=== PATIENT | female | born 1980 | race Caucasian/White ===

== ENCOUNTER 2024-04-07 19:07 | Inpatient (IN) | payer MEDICAID ==
[~2024-04-07] VITALS: Ht 170.2 cm; Wt 59.0 kg
[2024-04-07] MEDS ORDERED: ONDANSETRON 4 MG/2 ML VIAL ONE (19:57)
[2024-04-07 20:03] LABS: BASOPHILS % (AUTO) 0.2 % (0.0-2.0); HEMOGLOBIN 12.8 g/dL (10.9-14.3); LYMPHOCYTES # (AUTO) 1.1 K/uL (0.8-4.8); LYMPHOCYTES % (AUTO) 9.3 % (20.5-51.5); MEAN CORPUSCULAR HEMOGLOBIN 30.7 uug (24.7-32.8); MEAN CORPUSCULAR HGB CONC 35 g/dL (32.3-35.6); MEAN CORPUSCULAR VOLUME 88.5 fL (75.5-95.3); MONOCYTES # (AUTO) 0.7 K/uL (0.1-1.30); MONOCYTES % (AUTO) 6.2 % (0.0-11.0); NEUTROPHILS # (AUTO) 10.2 K/uL (1.8-8.9); NEUTROPHILS % (AUTO) 84.3 % (38.5-71.5); PLATELET COUNT (AUTO) 373 K/uL (179-408); RED BLOOD CELL COUNT(AUTO) 4.18 MIL/uL (3.63-4.92); WHITE BLOOD COUNT (AUTO) 12.1 K/uL (3.8-11.8)
[2024-04-07] MEDS: IV NS 1000 ML 1,000 ML IV ONE (20:05)
[2024-04-07 20:06] LABS: DIFFERENTIAL COMMENT 1
[2024-04-07 20:18] LABS: ALBUMIN 3.1 g/dL (3.4-5.0); BILIRUBIN,TOTAL 0.9 mg/dL (0.2-1.0); CALCIUM 8.8 mg/dL (8.5-10.1); CREATININE 0.6 mg/dL (0.6-1.3); TOTAL PROTEIN, SERUM 6.6 g/dL (6.4-8.2)
[2024-04-07 20:28] LABS: POTASSIUM 2.7 mmol/L (3.5-5.1)
[2024-04-07] MEDS: ONDANSETRON 4 MG/2 ML VIAL IV ONE (20:39)
[2024-04-07] MEDS ORDERED: NEOMY/BACITRA/POLYMYXIN B OINT UD PACKET TP ONE (20:48)
[2024-04-07] MEDS: POTASSIUM CHLORIDE 50 ML IV SCH (22:00)
[2024-04-07] MEDS: NEOMY/BACITRA/POLYMYXIN B OINT UD PACKET TP ONE (22:00)
[2024-04-07] MEDS ORDERED: IV NORMAL SALINE 250 ML IV ONE ×2 (22:08→23:21)
[2024-04-07] MEDS ORDERED: SWABABLE VALVE TRANSFER SET EA MC ONE ×2 (22:08→23:21)
[2024-04-07] MEDS ORDERED: IOHEXOL 300MG/ML 100 ML INFUS..BTL ONE ×2 (22:08→23:21)
[2024-04-07] MEDS ORDERED: POTASSIUM CHLORIDE 200 ML ONE (22:49)
[2024-04-07] MEDS ORDERED: POTASSIUM CHLORIDE 20 MEQ TAB.PRT.SR ONE (22:49)
[2024-04-07] MEDS: POTASSIUM CHLORIDE 20 MEQ TAB.PRT.SR PO ONE (22:50)
[2024-04-07 22:54] LABS: *BLOOD, URINE 3+ (NEGATIVE); *CLARITY,URINE CLOUDY (CLEAR); *COLOR,URINE YELLOW (YELLOW); *KETONES,URINE 4+ (NEGATIVE); LEUKOCYTE ESTERASE ,URINE 1+ (NEGATIVE); NITRITE, URINE POSITIVE (NEGATIVE); UGLUCOSE NEGATIVE (NEGATIVE)
[2024-04-07] MEDS: METOCLOPRAMIDE HCL 10 MG/2 ML VIAL IV ONE (23:00)
[2024-04-07 23:03] LABS: *PROTEIN,URINE 3+ (NEGATIVE)
[2024-04-07 23:04] LABS: *BILIRUBIN,URIN 2+ (NEGATIVE)
[2024-04-07] MEDS ORDERED: METOCLOPRAMIDE HCL 10 MG/2 ML VIAL ONE (23:12)
[2024-04-08] MEDS: MAGNESIUM SULFATE/D5W 100 ML IV SCH
[2024-04-08 01:09] LABS: BACTERIA,URINE MODERATE /HPF (NONE SEEN); RBC,URINE 20-50 /HPF (0-3); SQUAMOUS EPITHELIAL CELL,UR FEW /HPF (NONE SEEN)
[2024-04-08 01:10] LABS: CALCIUM OXALATE CRYSTALS,UR FEW /HPF (NONE SEEN)
[2024-04-08] MEDS ORDERED: CEFTRIAXONE /D5W 50ML IVPB **ER PYXIS IV ONE ×3 (01:45→22:53)
[2024-04-08] MEDS ORDERED: MAGNESIUM SULFATE/D5W 100 ML ONE (01:45)
[2024-04-08] MEDS: CEFTRIAXONE 1 G in IV DEXTROSE 5% 50 ML IV ONE (01:50)
[2024-04-08] MEDS ORDERED: ONDANSETRON 4 MG/2 ML VIAL ONE (02:34)
[2024-04-08] MEDS: ONDANSETRON 4 MG/2 ML VIAL IV ONE (02:40)
[2024-04-08] MEDS ORDERED: MAGNESIUM HYDROXIDE 30 ML LIQUID UDC PO PRN (05:45)
[2024-04-08] MEDS ORDERED: REMEDY ESSENTIAL ZINC PASTE 113 GM TP PRN (05:45)
[2024-04-08] MEDS ORDERED: PROCHLORPERAZINE EDISYLATE 10 MG/2 ML VIAL ONE (05:59)
[2024-04-08] MEDS ORDERED: HYDROMORPHONE 1 MG/1 ML DISP.SYRIN ONE (06:00)
[2024-04-08] MEDS: PROCHLORPERAZINE EDISYLATE 10 MG/2 ML VIAL IM ONE (06:05)
[2024-04-08] MEDS: HYDROMORPHONE 1 MG/1 ML DISP.SYRIN IV ONE (06:05)
[2024-04-08 08:13] LABS: BASOPHILS % (AUTO) 0.3 % (0.0-2.0); EOSINOPHILS % (AUTO) 0.1 % (0.0-7.0); HEMATOCRIT 36.5 % (31.2-41.9); HEMOGLOBIN 12.7 g/dL (10.9-14.3); LYMPHOCYTES # (AUTO) 1.4 K/uL (0.8-4.8); LYMPHOCYTES % (AUTO) 13.5 % (20.5-51.5); MEAN CORPUSCULAR HEMOGLOBIN 31.6 uug (24.7-32.8); MEAN CORPUSCULAR HGB CONC 35 g/dL (32.3-35.6); MONOCYTES # (AUTO) 0.7 K/uL (0.1-1.30); MONOCYTES % (AUTO) 7.4 % (0.0-11.0); NEUTROPHILS % (AUTO) 78.7 % (38.5-71.5); PLATELET COUNT (AUTO) 296 K/uL (179-408); RED BLOOD CELL COUNT(AUTO) 4.01 MIL/uL (3.63-4.92); RED CELL DISTRIBUTION WIDTH 13.2 % (12.3-17.7); WHITE BLOOD COUNT (AUTO) 10.1 K/uL (3.8-11.8)
[2024-04-08 08:39] LABS: DIFFERENTIAL COMMENT 1
[2024-04-08 08:53] LABS: CALCIUM 7.8 mg/dL (8.5-10.1); CREATININE 0.6 mg/dL (0.6-1.3); MAGNESIUM 1.8 mg/dL (1.8-2.4); POTASSIUM 3.6 mmol/L (3.5-5.1)
[2024-04-08] MEDS ORDERED: ENOXAPARIN SODIUM 40 MG/0.4 ML DISP.SYRIN SQ ONE (09:44)
[2024-04-08] MEDS: ENOXAPARIN SODIUM 40 MG/0.4 ML DISP.SYRIN SQ SCH (09:52)
[2024-04-08] MEDS: IV LACTATED RINGERS SOLUTION 1,000 ML IV SCH (13:26)
[2024-04-08] MEDS: CEFTRIAXONE 1 G in IV DEXTROSE 5% 50 ML IV SCH (22:58)
[2024-04-09 04:52] VITALS: BP 105/56; TEMP 98
[2024-04-09] MEDS: ONDANSETRON 4 MG/2 ML VIAL IV PRN (04:58)
[2024-04-09] MEDS ORDERED: ONDANSETRON 4 MG/2 ML VIAL IV PRN (05:45)
[2024-04-09 08:00] LABS: BASOPHILS % (AUTO) 0.3 % (0.0-2.0); EOSINOPHILS % (AUTO) 0.1 % (0.0-7.0); HEMATOCRIT 35.9 % (31.2-41.9); HEMOGLOBIN 12.4 g/dL (10.9-14.3); LYMPHOCYTES % (AUTO) 15.2 % (20.5-51.5); MEAN CORPUSCULAR HEMOGLOBIN 30.7 uug (24.7-32.8); MEAN CORPUSCULAR HGB CONC 35 g/dL (32.3-35.6); MONOCYTES # (AUTO) 0.5 K/uL (0.1-1.30); MONOCYTES % (AUTO) 7.9 % (0.0-11.0); NEUTROPHILS % (AUTO) 76.5 % (38.5-71.5); PLATELET COUNT (AUTO) 282 K/uL (179-408); RED BLOOD CELL COUNT(AUTO) 4.03 MIL/uL (3.63-4.92); RED CELL DISTRIBUTION WIDTH 12.9 % (12.3-17.7); WHITE BLOOD COUNT (AUTO) 6.5 K/uL (3.8-11.8)
[2024-04-09 08:25] LABS: DIFFERENTIAL COMMENT 1
[2024-04-09 08:32] LABS: CARBON DIOXIDE 25 mmol/L (21-32); CHLORIDE 99 mmol/L (98-107); CHOLESTEROL 159 mg/dL (<200); CREATININE 0.5 mg/dL (0.6-1.3); GLUCOSE 103 mg/dL (74-106); HDL CHOLESTEROL 51 mg/dL (40-60); MAGNESIUM 1.6 mg/dL (1.8-2.4); PHOSPHOROUS 2.9 mg/dL (2.5-4.9); SODIUM SERUM 138 mmol/L (136-145); TRIGLYCERIDES 94 MG/DL (30-150); UREA NITROGEN, BLOOD 4 mg/dL (7-18)
[2024-04-09 08:44] LABS: POTASSIUM 2.6 mmol/L (3.5-5.1)
[2024-04-09] MEDS ORDERED: POTASSIUM CHLORIDE 20 MEQ TAB.PRT.SR PO ONE (10:45)
[2024-04-09] MEDS ORDERED: POTASSIUM CHLORIDE 50 ML IV SCH (10:45)
[2024-04-09] MEDS: MAGNESIUM SULFATE/D5W 100 ML IV SCH (11:29)
[2024-04-09] MEDS: PROCHLORPERAZINE EDISYLATE 10 MG/2 ML VIAL IV PRN (11:30)
[2024-04-09 11:58] VITALS: BP 128/72; TEMP 97; O2SAT 97
[2024-04-09] MEDS: POTASSIUM CHLORIDE 50 ML IV SCH (12:41)
[2024-04-09] MEDS: POTASSIUM CHLORIDE 20 MEQ TAB.PRT.SR PO SCH (12:41)
[2024-04-09 16:00] VITALS: BP 111/71; TEMP 98; O2SAT 97
[2024-04-09 17:03] LABS: THYROID STIMULATING HORMONE 1.051 mIU/mL (0.358-3.740)
[2024-04-09 17:15] LABS: CALCIUM 8.3 mg/dL (8.5-10.1); CARBON DIOXIDE 21 mmol/L (21-32); CHLORIDE 99 mmol/L (98-107); CREATININE 0.5 mg/dL (0.6-1.3); GLUCOSE 90 mg/dL (74-106); MAGNESIUM 1.8 mg/dL (1.8-2.4); PHOSPHOROUS 3.2 mg/dL (2.5-4.9); POTASSIUM 2.8 mmol/L (3.5-5.1); SODIUM SERUM 139 mmol/L (136-145); UREA NITROGEN, BLOOD 3 mg/dL (7-18)
[2024-04-09] MEDS: IV LACTATED RINGERS SOLUTION 1,000 ML IV PRN (18:08)
[2024-04-09 19:30] VITALS: BP 125/74; TEMP 98.4; O2SAT 100
[2024-04-10] MEDS: ONDANSETRON 4 MG/2 ML VIAL IV PRN (00:49)
[2024-04-10] MEDS: TEMAZEPAM 7.5 MG CAPSULE PO ONE (02:09)
[2024-04-10 06:30] VITALS: BP 125/63; TEMP 99.6; O2SAT 97
[2024-04-10 07:13] LABS: BASOPHILS % (AUTO) 0.2 % (0.0-2.0); HEMATOCRIT 35.6 % (31.2-41.9); HEMOGLOBIN 12.5 g/dL (10.9-14.3); LYMPHOCYTES # (AUTO) 1.1 K/uL (0.8-4.8); LYMPHOCYTES % (AUTO) 11.4 % (20.5-51.5); MEAN CORPUSCULAR HEMOGLOBIN 31.5 uug (24.7-32.8); MEAN CORPUSCULAR HGB CONC 35 g/dL (32.3-35.6); MEAN CORPUSCULAR VOLUME 89.6 fL (75.5-95.3); MONOCYTES # (AUTO) 0.7 K/uL (0.1-1.30); MONOCYTES % (AUTO) 7.6 % (0.0-11.0); NEUTROPHILS # (AUTO) 7.7 K/uL (1.8-8.9); NEUTROPHILS % (AUTO) 80.8 % (38.5-71.5); PLATELET COUNT (AUTO) 321 K/uL (179-408); RED BLOOD CELL COUNT(AUTO) 3.97 MIL/uL (3.63-4.92); RED CELL DISTRIBUTION WIDTH 12.9 % (12.3-17.7); WHITE BLOOD COUNT (AUTO) 9.6 K/uL (3.8-11.8)
[2024-04-10 07:20] LABS: DIFFERENTIAL COMMENT 1
[2024-04-10 07:25] LABS: CALCIUM 7.9 mg/dL (8.5-10.1); CARBON DIOXIDE 24 mmol/L (21-32); CHLORIDE 100 mmol/L (98-107); CREATININE 0.5 mg/dL (0.6-1.3); GLUCOSE 93 mg/dL (74-106); MAGNESIUM 1.9 mg/dL (1.8-2.4); PHOSPHOROUS 2.5 mg/dL (2.5-4.9); POTASSIUM 3.3 mmol/L (3.5-5.1); SODIUM SERUM 138 mmol/L (136-145); UREA NITROGEN, BLOOD 2 mg/dL (7-18)
[2024-04-10] MEDS: POTASSIUM CHLORIDE 50 ML IV SCH (08:22)
[2024-04-10] MEDS: MORPHINE SULFATE 2 MG/1 ML DISP.SYRIN IV PRN (08:23)
[2024-04-10 11:06] LABS: *ANTI-SCLERODERMA-70 AB <0.2 AI (0.0-0.9); *RNP ANTIBODIES <0.2 AI (0.0-0.9); *SJOGREN'S ANTI-SS-A <0.2 AI (0.0-0.9); *SJOGREN'S ANTI-SS-B <0.2 AI (0.0-0.9); *SMITH ANTIBODIES <0.2 AI (0.0-0.9); ANTI-DNA(DS) AB, QN <1 IU/mL (0-9); ANTI-NUCLEAR AB DIRECT Negative (Negative)
[2024-04-10 12:00] VITALS: BP 111/78; TEMP 98; O2SAT 97
[2024-04-10] MEDS: POTASSIUM CHLORIDE 20 MEQ POWDER PACKET PO ONE (12:57)
[2024-04-10] MEDS: DULOXETINE 20 MG CAPSULE.DR PO SCH (13:01)
[2024-04-10 16:00] VITALS: BP 125/74; TEMP 98.4; O2SAT 100
[2024-04-10] MEDS: SIMETHICONE 80 MG TAB.CHEW PO PRN (16:33)
[2024-04-10] MEDS: PANTOPRAZOLE SODIUM 40 MG VIAL IV SCH (16:34)
[2024-04-10 20:00] VITALS: BP 122/74; TEMP 99; O2SAT 95
[2024-04-10] MEDS: ACETAMINOPHEN 325 MG TABLET PO PRN (23:23)
[2024-04-11 04:46] VITALS: BP 118/72; TEMP 98.7; O2SAT 94
[2024-04-11 06:03] VITALS: BP 118/72; TEMP 98.7; O2SAT 94
[2024-04-11 06:05] VITALS: BP 118/72; TEMP 98.7; O2SAT 100
[2024-04-11 11:05] VITALS: BP 109/65; TEMP 97.7; O2SAT 97
[2024-04-11] MEDS ORDERED: PANT40TA2 PO (14:10)
[2024-04-11] MEDS ORDERED: HYDR-3972 PO (14:10)
[2024-04-11] MEDS ORDERED: ONDA4TAB11 PO (14:10)
[2024-04-11] MEDS ORDERED: SULF1TAB48 PO (14:18)
[2024-04-11 14:59] LABS: BASOPHILS % (AUTO) 0.1 % (0.0-2.0); HEMOGLOBIN 11.8 g/dL (10.9-14.3); LYMPHOCYTES # (AUTO) 1.1 K/uL (0.8-4.8); LYMPHOCYTES % (AUTO) 13.6 % (20.5-51.5); MEAN CORPUSCULAR HGB CONC 35 g/dL (32.3-35.6); MEAN CORPUSCULAR VOLUME 89.3 fL (75.5-95.3); MONOCYTES # (AUTO) 0.8 K/uL (0.1-1.30); MONOCYTES % (AUTO) 9.2 % (0.0-11.0); NEUTROPHILS # (AUTO) 6.4 K/uL (1.8-8.9); NEUTROPHILS % (AUTO) 77.1 % (38.5-71.5); PLATELET COUNT (AUTO) 341 K/uL (179-408); RED BLOOD CELL COUNT(AUTO) 3.81 MIL/uL (3.63-4.92); RED CELL DISTRIBUTION WIDTH 13.3 % (12.3-17.7); WHITE BLOOD COUNT (AUTO) 8.4 K/uL (3.8-11.8)
[2024-04-11 15:06] LABS: DIFFERENTIAL COMMENT 1
[2024-04-11 15:07] LABS: CALCIUM 8.2 mg/dL (8.5-10.1); CARBON DIOXIDE 27 mmol/L (21-32); CHLORIDE 99 mmol/L (98-107); CREATININE 0.4 mg/dL (0.6-1.3); GLUCOSE 103 mg/dL (74-106); POTASSIUM 3.4 mmol/L (3.5-5.1); SODIUM SERUM 139 mmol/L (136-145); UREA NITROGEN, BLOOD 3 mg/dL (7-18)
[2024-04-11 15:11] LABS: MAGNESIUM 1.8 mg/dL (1.8-2.4); PHOSPHOROUS 2.9 mg/dL (2.5-4.9)
[2024-04-11 15:12] VITALS: BP 110/70; TEMP 97.6; O2SAT 98
[2024-04-11] MEDS ORDERED: DULO20CA PO (15:20)
[2024-04-11] MEDS: POTASSIUM CHLORIDE 20 MEQ POWDER PACKET PO ONE (16:00)
[2024-04-11] MEDS ORDERED: SULFAMETH/TRIMETH 800/160 MG TABLET PO SCH (21:00)
[2024-04-13 17:11] LABS: PTT-LA 31.1 sec (0.0-43.5); THROMBIN TIME 19.4 sec (0.0-23.0)
[2024-04-13 18:06] LABS: LUPUS INTERPRETATION Comment: (.)
== END 2024-04-11 16:20 | disposition home or self-care (01) | DRG 463 ==
LOC: ER 19:13 → TRANSITION 04-08 10:56 → MEDSURG3 04-08 21:40
PROVIDERS: ADMIT Nurse Practitioner Acute Care
DX: N30.00 Acute cystitis without hematuria (principal); G12.21 Amyotrophic lateral sclerosis; E86.0 Dehydration; E87.6 Hypokalemia; E83.42 Hypomagnesemia; M79.7 Fibromyalgia; B96.20 Unspecified Escherichia coli [E. coli] as the cause of diseases classified elsewhere; R47.02 Dysphasia; R13.10 Dysphagia, unspecified; R11.2 Nausea with vomiting, unspecified; G43.909 Migraine, unspecified, not intractable, without status migrainosus; F41.9 Anxiety disorder, unspecified; R79.82 Elevated C-reactive protein (CRP); Z99.3 Dependence on wheelchair; S30.810A Abrasion of lower back and pelvis, initial encounter; X58.XXXA Exposure to other specified factors, initial encounter; Y92.039 Unspecified place in apartment as the place of occurrence of the external cause
CPT/HCPCS: 36415; 71045; 74220; 83735; 84100; 84443; 85025; 85613; 85651; 86038; 86140; 93005; A4606; A4663; A6213; G0378; J0696; J0780; J1171; J1650; J2270; J2405; J2470; J2765; J3475; J3480; J7040; J7120; Q9967